=== PATIENT | male | born 2000 | race Caucasian/White ===

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

== ENCOUNTER 2023-04-25 01:51 | Emergency (ER) | payer SELFPAY ==
[2023-04-25 01:56] VITALS: BP 110/59; PULSE 120; RESP 20; TEMP 36.6; O2SAT 98
[2023-04-25 02:44] LABS: Influenza A QL RT-PCR Negative (Negative); Influenza B QL RT-PCR Negative (Negative); RSV RNA, RT-PCR Negative (Negative); SARS-CoV-2 RNA PCR Negative (Negative)
[2023-04-25 03:49] VITALS: BP 121/80; PULSE 133; RESP 16; TEMP 34.7; O2SAT 100
--- NOTE | 2023-04-25 03:52 | PC.NURSE ---
Patient's oral temperature now 94.5 orally. Notified CONSTANZA Kaur
[2023-04-25 04:25] VITALS: BP 130/99; PULSE 93; RESP 16; TEMP 36.5; O2SAT 100
[2023-04-25] MEDS: ONDANSETRON INJ 4 MG/2 ML VIAL IV PUSH (05:04)
[2023-04-25 05:38] VITALS: BP 111/52; PULSE 97; RESP 18; O2SAT 98
[2023-04-25 06:39] VITALS: BP 139/84; PULSE 86; RESP 18; O2SAT 98
[2023-04-25 07:06] LABS: Basophils Percent Auto 0.2 % (0.2-1.2); Eosinophils Percent Auto 0.1 % (0-4.4); Hematocrit 53.1 % (42.0-52.0); Hemoglobin 17.7 g/dL (14.0-18.0); Immature Granulocyte Absolute 0.05 K/mm3 (0.00-0.031); Immature Granulocyte Percent A 0.3 % (0-0.5); Lymphocytes Absolute Auto 0.35 K/mm3 (0.9-3.2); Lymphocytes Percent Auto 2.4 % (18.3-44.2); Mean Corpuscular HGB Conc 33.3 g/dl (32-36); Mean Corpuscular Hemoglobin 29.8 pg (26-34); Mean Corpuscular Volume 89.5 fl (80-100); Mean Platelet Volume 10.5 fl (7.4-10.4); Monocytes Absolute Auto 0.7 K/mm3 (0.1-0.6); Monocytes Percent Auto 4.8 % (2.6-8.5); Neutrophils Absolute Auto 13.4 K/mm3 (1.3-6.7); Neutrophils Percent Auto 92.2 % (45.5-73.1); Platelet Count Result 288 k/mm3 (150-375); Red Blood Count 5.93 M/mm3 (4.6-6.20); Red Cell Distribution Width 11.7 % (11.5-14.5); White Blood Count 14.6 K/mm3 (4.5-10.0)
[2023-04-25 07:30] LABS: Alanine Aminotransferase 40 U/L (6-50); Albumin Level 4.9 g/dL (3.5-5.1); Alkaline Phosphatase 82 U/L (38-126); Anion Gap 14 mmol/L (8-16); Aspartate Amino Transferase 28 U/L (17-59); Bilirubin,Total 1.3 mg/dL (0.2-1.3); Blood Urea Nitrogen 15 mg/dL (9-20); Calcium 9.6 mg/dL (8.4-10.2); Carbon Dioxide 23 mmol/L (22-30); Chloride 102 mmol/L (98-107); Estimated CRCL calculation 148 ml/min; Estimated Glomerular Filt Rate > 60; Glucose 101 mg/dL (65-110); Lipase 104 U/L (23-300); Potassium 3.8 mmol/L (3.4-5.0); Sodium 139 mmol/L (137-145)
[2023-04-25] MEDS: SODIUM CHLORIDE 0.9% IV 1,000 ML 999 ML IV CONT (07:34)
[2023-04-25 08:01] LABS: Appearance Urine Clear (Clear); Bacteria Urine None Seen /hpf; Bilirubin Urine 1+ (Negative); Blood Urine Negative (Negative); Color Urine Dark Yellow (Yellow); Glucose Urine UA Negative (Negative); Ketones Urine 1+ mg/dL (Negative); Leukocyte Esterase Ur Trace LEU/UL (Negative); Nitrate Urine Negative (Negative); Non Pathogenic Casts 0-2; Protein Urine 1+ mg/dL (Negative); RBC Urine 0-2 /hpf (0-2); Squamous Epithelial Cell Urine None seen /hpf (Few); WBC Urine 0-5 /hpf; pH Urine 5.5 (5.0-9.0)
--- NOTE | 2023-04-25 08:21 | ED.NAVMDI ---
HPI - Nausea/Vomiting/Diarrhea General Chief complaint: Nausea/Vomiting/Diarrhea Stated complaint: fever, n/v Time Seen by Provider: 04/25/23 06:58 History of Present Illness HPI Narrative: patient is a 22-year-old male who presents ER with nausea/ vomiting. Sudden onset last night. He does endorse fever as well as being around others who have had similar GI illness. No complaints of shortness of breath to me. He reports mild discomfort in the chest wall for vomiting. Related Data Allergies Allergy/AdvReac Type Severity Reaction Status Date / Time No Known Allergies Allergy Verified 04/25/23 04:30 Review of Systems Review of Systems: All systems reviewed & are unremarkable except as noted in HPI and below Constitutional: Constitutional: Denies chills, Reports fatigue and Reports fever(s) ENT: Denies nasal congestion and Denies sore throat Cardiovascular: Cardiovascular: Reports no additional cardiovascular complaints Respiratory: Respiratory: Reports no additional respiratory complaints Gastrointestinal: Gastrointestinal: Denies abdominal pain, Reports nausea and Reports vomiting PMFSH Past Medical History Medical History (Updated 04/25/23 @ 08:25 by Merritt Ann MD) Healthy adult male Surgical History Surgical History (Updated 04/25/23 @ 08:23 by Merritt Ann MD) No pertinent past surgical history Social History Social History (System 07/08/21 @ 16:28 by José Luis Youngblood) Smoking status: Never smoker Alcohol intake: never Substance use: never Living arrangements: with family Exam Narrative: GENERAL: Well-appearing, well-nourished, and in no acute distress. HEAD: Normocephalic, atraumatic. ENT: Mucous membranes moist. CHEST: Clear to auscultation. No respiratory distress. HEART: Regular rate and rhythm. Normal peripheral pulses. ABDOMEN: Soft, nontender, nondistendeds. EXTREMITIES: Normal range of motion. No edema. SKIN: Warm, dry, no rash. NEURO: Alert and oriented x3. PSYCH: Normal mood and affect. Course Course Emergency Course: patient felt much better after Zofran. he also received IV fluid. Influenza/ COVID testing negative. Nonspecific leukocytosis likely related to his vomiting. Hemoglobin at 17.7 which is normal but may also represent being dry. CMP unremarkable. Patient felt appropriate for discharge home with supportive care. Vital Signs Vital signs: Vital Signs Temperature 97.8 F 04/25/23 01:56 Pulse Rate 120 H 04/25/23 01:56 Respiratory Rate 20 04/25/23 01:56 Blood Pressure 110/59 L 04/25/23 01:56 Pulse Oximetry 98 04/25/23 01:56 Oxygen Delivery Room Air 04/25/23 01:56 Temperature 97.7 F 04/25/23 04:25 Pulse Rate 86 04/25/23 06:39 Respiratory Rate 18 04/25/23 06:39 Blood Pressure 139/84 04/25/23 06:39 Pulse Oximetry 98 04/25/23 06:39 Oxygen Delivery Room Air 04/25/23 01:56 MDM - Nausea/Vomiting/Diarrhea Lab Data 04/25/23 06:55 04/25/23 06:55 Labs: Lab Results 04/25/23 04/25/23 04/25/23 Range/Units 02:03 06:55 07:48 WBC 14.6 H (4.5-10.0) K/mm3 RBC 5.93 (4.6-6.20) M/mm3 Hgb 17.7 (14.0-18.0) g/dL Hct 53.1 H (42.0-52.0) % MCV 89.5 (80-100) fl MCH 29.8 (26-34) pg MCHC 33.3 (32-36) g/dl RDW 11.7 (11.5-14.5) % Plt Count 288 (150-375) k/mm3 MPV 10.5 H (7.4-10.4) fl Immature Gran % (Auto) 0.3 (0-0.5) % Neut % (Auto) 92.2 H (45.5-73.1) % Lymph % (Auto) 2.4 L (18.3-44.2) % Robertson % (Auto) 4.8 (2.6-8.5) % Eos % (Auto) 0.1 (0-4.4) % Baso % (Auto) 0.2 (0.2-1.2) % Lymph # (Auto) 0.35 L (0.9-3.2) K/mm3 Robertson # (Auto) 0.7 H (0.1-0.6) K/mm3 Eos # (Auto) 0.0 (0-0.3) K/mm3 Baso # (Auto) 0.0 (0.0-0.1) K/mm3 Abs Immat Gran (auto) 0.05 H (0.00-0.031) K/mm3 Absolute Neuts (auto) 13.4 H (1.3-6.7) K/mm3 Absolute Nucleated RBC 0.0 (0.0-0.012) K/mm3 Nucleated RBC
[2023-04-25 08:25] LABS: Add Urine Microscopic? YES; Specific Grav Ur 1.038 (1.001-1.035)
[2023-04-25 08:40] VITALS: BP 142/74; PULSE 86; RESP 16; O2SAT 98
== END 2023-04-25 08:41 | disposition home or self-care (01) ==
PROVIDERS: Emergency Medicine; Emergency Provider Emergency Medicine; PCP Pediatrics
DX: K52.9 Noninfective gastroenteritis and colitis, unspecified (principal); Z20.822 Contact with and (suspected) exposure to COVID-19
CPT/HCPCS: 36415; 80053; 81001; 83690; 85025; 87637; 96361; 96374; 99284; J2405; J7030